=== PATIENT | male | born 1970 ===

== ENCOUNTER 2019-08-08 08:58 | Day surgery (SDC) | payer BC ==
--- NOTE | 2019-08-06 09:27 | HP ---
PREOPERATIVE HISTORY AND PHYSICAL: DATE OF SURGERY/ADMISSION: 08/08/19 [facility] ATTENDING SURGEON: Juana Ramírez MD ([place]) * (DICTATED BY ARY ARELLANO) DATE OF OFFICE VISIT/ENCOUNTER: 07/24/19 PROCEDURE: Pisiform excision, right wrist. HISTORY OF PRESENT ILLNESS: The patient is a 49-year-old male who complains of pain in his right wrist for the past year. Pain in on the ulnar aspect of his wrist. There was no specific injury. 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 He saw his primary care doctor who ordered an MRI of the wrist that showed flexor carpi ulnaris tendonitis. There were no other findings. This corresponds to the area of pain. He denies any associated numbness or tingling. In addition to FCU tendonitis, the MRI showed increased swelling and arthritis at the pisotriquetral joint. Dr. Ramírez is recommending surgical intervention for this problem and the patient has consented to proceed. PAST MEDICAL HISTORY: History of MRSA approximately 1 year ago. PAST SURGICAL HISTORY: 1. Knee surgery, bilateral arthroscopies. 2. Bilateral shoulder arthroscopies. 3. Ear tubes for bilateral carpal tunnel releases. 4. Tonsillectomy adenoidectomy. MEDICATIONS: None. ALLERGIES: No known drug allergies. FAMILY MEDICAL HISTORY: COPD, heart disease. 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 He is a former smoker, he quit approximately 10 years ago, prior to that he smoked a pack per day for 24 years. He denies recreational drug use. He drinks alcohol on a regular occasion. REVIEW OF SYSTEMS: Positive for rash on bilateral shins. Otherwise negative for general, cephalic, cardiovascular, respiratory, GI, , other musculoskeletal, other integumentary, endocrine, neurologic, and hematologic symptoms. Infectious Disease: Positive for history of MRSA. Negative for hepatitis C, HIV. PHYSICAL EXAMINATION GENERAL: Well-developed, well-nourished 49-year-old male, in no acute distress. VITAL SIGNS: Height 6 feet tall, weight 215 pounds, pulse rate 89, blood pressure 124/80. HEENT: Normocephalic and atraumatic. Pupils are equal, round, and reactive to light and accommodation. Extraocular movements are intact. Throat is clear. NECK: Supple. No palpable lymph nodes. PULMONARY: Lungs are clear to auscultation bilaterally. No wheezes, rales, or rhonchi. CARDIOVASCULAR: Regular rate and rhythm. S1, S2. No murmurs, rubs, or gallops. No edema. ABDOMEN: Positive bowel sounds. Soft and nontender. NEUROLOGIC: Alert and oriented x3. Cranial nerves II through XII are intact. Sensation is intact to light touch. MUSCULOSKELETAL: On exam of his right wrist, he has tenderness at the pisotriquetral joint. He has normal range of motion of the wrist in flexion, extension, pronation, and supination. He can make a full fist and fully extend his fingers. There is no swelling, no erythema. DIAGNOSTIC STUDIES/LAB DATA: MRI shows increased swelling and uptake around the pisotriquetral joint and the FCU tendon. 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 PLAN: The patient is scheduled to undergo a pisiform excision, right wrist with Dr. Ramírez on 08/08/19. He will return to the office 10 days postop for followup and suture removal. A prescription for tramadol was e-scribed to the patient's pharmacy for postoperative pain management. ARY ARELLANO [id number]/[facility] #: [id number] ARCHIE
[~2019-08-08 08:58] MED LIST: Buffered Lidocaine 1% SYRIN* 1 ML/SYRINGE INTRADERM ONE; Dexamethasone IV* 4 MG/ML 1 ML (4 MG) IV SLOW PU ONE; Dexamethasone IV* 4 MG/ML 1 ML (4 MG) ONE; Famotidine IV* 10 MG/ML 2 ML (20 mg) IV ONE; Famotidine IV* 10 MG/ML 2 ML (20 mg) ONE; Lactated Ringers 1000 ML Bag* 1,000 ML IV SCH
[2019-08-08] MEDS ORDERED: Lidocaine 1% INJ* 10 MG/ML 30 ML SDV ONE (10:59)
[2019-08-08] MEDS ORDERED: Ketorolac INJ* 30 MG/ML 1 ML VIAL ONE (11:15)
[2019-08-08] MEDS ORDERED: Lidocaine 2% PF * 5 ML VIAL ONE (11:15)
[2019-08-08] MEDS ORDERED: Ondansetron INJ* 2 MG/ML VIAL ONE (11:15)
[2019-08-08] MEDS ORDERED: Propofol* 10 MG/ML 20 ML BTL ONE (11:15)
[2019-08-08] MEDS ORDERED: fentaNYL* 50 MCG/ML 5 ML VIAL (250 MCG VIAL) ONE (11:16)
[2019-08-08] MEDS ORDERED: Midazolam* 1 MG/ML 2 ML VIAL (2 MG) ONE (11:16)
[2019-08-08 12:39] VITALS: BP 151/83
--- NOTE | 2019-08-08 23:11 | OP ---
DATE OF OPERATION: 08/08/19 [facility] DATE OF : 68 SURGEON: Juana Ramírez MD GROUP THERAPY COUNSELOR: ARY Odonnell ANESTHESIA: General. PRE-OP DIAGNOSIS: Pisotriquetral arthritis of the right wrist. POST-OP DIAGNOSIS: Pisotriquetral arthritis of the right wrist. OPERATIVE PROCEDURE: Pisiform excision, right wrist. ESTIMATED BLOOD LOSS: Zero. TOURNIQUET TIME: About 20 minutes. INDICATIONS FOR PROCEDURE: Raj is a 49-year-old male who has painful arthritis on the ulnar aspect of his wrist at the pisotriquetral joint. He presents for pisiform excision on the right. DESCRIPTION OF PROCEDURE: The patient was brought to the operating room and was given a general anesthetic and placed in the supine position on the operating table with the tourniquet around his right upper arm. The skin of his right upper extremity was prepped and draped in the usual sterile fashion. The upper extremity was exsanguinated and the tourniquet elevated to 250 mmHg. A Lamont incision was made over the wrist flexion creases on the ulnar aspect of the wrist and we dissected bluntly through the subcutaneous tissue down to the flexor carpi ulnaris tendon. The tendon was split longitudinally and then subperiosteally dissected off of the pisiform. The joint capsule was incised sharply with a knife and the pisiform was excised in its entirety and sent for pathology. The wound was irrigated and the pisiform was repaired with 2-0 Vicryl suture. The skin edges were reapproximated with 4-0 nylon suture. The wound was dressed with Xeroform, 4x4, Webril, and an Jose wrap. The patient tolerated the procedure well and was brought to the recovery room in good condition. [id number]/[facility] #: [id number] [facility]
== END 2019-08-10 12:37 | disposition home or self-care (01) ==
LOC: OREAST 08:58
PROVIDERS: ATTEND Orthopaedic Surgery
DX: M19.031 Primary osteoarthritis, right wrist (principal); M77.8 Other enthesopathies, not elsewhere classified; Z86.14 Personal history of Methicillin resistant Staphylococcus aureus infection; Z87.891 Personal history of nicotine dependence
CPT/HCPCS: 88304; 88311; J1100; J1885; J2250; J2405; J2704; J3010